=== PATIENT | male | born 1980 | race African-American/Black ===

== ENCOUNTER 2018-05-27 04:25 | Emergency (ER) | payer MEDICAID ==
[~2018-05-27] VITALS: Ht 180.3 cm; Wt 75.0 kg
[2018-05-27] MEDS ORDERED: ONDANSETRON HCL 4MG/2ML INJ IV STA (04:28)
[2018-05-27] MEDS ORDERED: SODIUM CHLORIDE 0.9% 1,000 ML IV ONE (04:28)
[2018-05-27] MEDS ORDERED: MORPHINE SULFATE 4 MG/ML CPJ (NOT FOR IM USE) IV STA (04:28)
[2018-05-27] MEDS ORDERED: TETANUS, DIPHTHERIA, PERTUSSIS VAC/PF 0.5ML (>7YR OLD) IM ONE (04:30)
[2018-05-27] MEDS ORDERED: CEFAZOLIN 1000MG PREMIX 50 ML IV ONE (04:30)
[2018-05-27] MEDS ORDERED: ONDANSETRON HCL 4MG/2ML INJ ONE (04:38)
[2018-05-27] MEDS ORDERED: MORPHINE SULFATE 4 MG/ML CPJ (NOT FOR IM USE) IV ONE ×3 (04:38→06:30)
[2018-05-27 04:55] LABS: BASOPHILS % 0.7 % (0.0-2.0); EOSINOPHILS % 2.3 % (0.0-5.0); HEMATOCRIT. 42.9 % (42.0-52.0); HEMOGLOBIN. 14.2 g/dL (14.0-18.0); LYMPHOCYTES % 52.3 % (20.0-50.0); MEAN CORPUSCULAR HEMOGLOBIN 30.7 pg (28.0-32.0); MEAN PLATELET VOLUME 8.4 fl (7.4-10.4); MONOCYTES % 9.1 % (2.0-8.0); NEUTROPHILS % 35.6 % (40.0-76.0); PLATELET 233 x1000/uL (130-400); RED BLOOD CELL COUNT 4.62 mill/uL (4.7-6.1); RED CELL DISTRIBUTION WIDTH 13.2 % (11.6-14.6)
[2018-05-27 04:59] LABS: CHLORIDE 107 mEq/L (98-107)
[2018-05-27 05:01] LABS: INR 1.1; PARTIAL THROMBOPLASTIN TIME 24.3 sec (23.4-31.0); PROTHROMBIN TIME 10.8 sec (9.1-11.1)
[2018-05-27] MEDS ORDERED: POTASSIUM CHLORIDE 20MEQ TABLET SR PO ONE (05:45)
[2018-05-27] MEDS ORDERED: HYDROCODONE/ACETAMINOPHEN 10/325MG TABLET PO ONE (06:30)
[2018-05-27 07:21] VITALS: BP 128/80
== END 2018-05-27 07:22 | disposition home or self-care (01) ==
LOC: ER 04:32
DX: S91.302A Unspecified open wound, left foot, initial encounter (principal); F17.200 Nicotine dependence, unspecified, uncomplicated; F12.10 Cannabis abuse, uncomplicated; W34.09XA Accidental discharge from other specified firearms, initial encounter; Y93.89 Activity, other specified; Y92.89 Other specified places as the place of occurrence of the external cause; Y99.8 Other external cause status
CPT/HCPCS: 36415; 71045; 72170; 73590; 73610; 73630; 80053; 82962; 83690; 85025; 85610; 85730; 86850; 86900; 86901; 90471; 90715; 96365; 96375; 96376; 99285; J0690; J2270; J2405; J7030

== ENCOUNTER 2018-06-12 13:00 | Inpatient (IN) | payer MEDICAID ==
[~2018-06-12] VITALS: Ht 174 cm; Wt 64.4 kg
[~2018-06-12 13:00] MED LIST: HYDR-4009 PO; SIMV10TA6 PO
[2018-06-12] MEDS ORDERED: LACTATED RINGERS 1,000 ML IV SCH (13:45)
[2018-06-12 14:42] LABS: BASOPHILS % 0.5 % (0.0-2.0); EOSINOPHILS % 3.3 % (0.0-5.0); HEMATOCRIT. 38.4 % (42.0-52.0); HEMOGLOBIN. 12.8 g/dL (14.0-18.0); LYMPHOCYTES % 30.3 % (20.0-50.0); MEAN CORPUSCULAR HEMOGLOBIN 30.4 pg (28.0-32.0); MEAN CORPUSCULAR VOLUME 90.6 fL (80.0-94.0); MEAN PLATELET VOLUME 7.5 fl (7.4-10.4); MONOCYTES % 9.5 % (2.0-8.0); NEUTROPHILS % 56.4 % (40.0-76.0); PLATELET 380 x1000/uL (130-400); RED BLOOD CELL COUNT 4.23 mill/uL (4.7-6.1); RED CELL DISTRIBUTION WIDTH 12.9 % (11.6-14.6)
[2018-06-12 14:46] LABS: CHLORIDE 104 mEq/L (98-107)
[2018-06-12 14:50] LABS: INR 1.1; PARTIAL THROMBOPLASTIN TIME 28.8 sec (23.4-31.0); PROTHROMBIN TIME 10.6 sec (9.1-11.1)
[2018-06-12] MEDS ORDERED: BUPIVACAINE HCL/PF 0.25% (2.5MG/ML) 10ML ONE (15:53)
[2018-06-12] MEDS ORDERED: BACITRACIN 50,000 UNITS/VIAL ONE (15:55)
[2018-06-12 16:11] LABS: CLARITY URINE CLEAR (CLEAR); COLOR URINE YELLOW (YELLOW); KETONES URINE NEGATIVE (NEGATIVE); LEUKOCYTE ESTERASE URINE NEGATIVE (NEGATIVE); NITRITE URINE NEGATIVE (NEGATIVE); OCCULT BLOOD URINE NEGATIVE (NEGATIVE); PROTEIN URINE NEGATIVE (NEGATIVE); SPECIFIC GRAVITY URINE 1.023 (1.005-1.030); UROBILINOGEN URINE 0.2 E.U./dL (0.2-1.0)
[2018-06-12] MEDS ORDERED: GLYCOPYRROLATE 0.2 MG/ML 2ML VIAL ONE (17:08)
[2018-06-12] MEDS ORDERED: MIDAZOLAM HCL 2 MG/2 ML VIAL ONE (17:08)
[2018-06-12] MEDS ORDERED: LIDOCAINE HCL/PF 1% 10 MG/ML 5ML VIAL ONE (17:08)
[2018-06-12] MEDS ORDERED: SUCCINYLCHOLINE CHLORIDE 200MG/10ML IV ONE (17:08)
[2018-06-12] MEDS ORDERED: FENTANYL CITRATE/PF 50MCG/ML 2ML VIAL ONE (17:08)
[2018-06-12] MEDS ORDERED: PROPOFOL 200MG/20ML VIAL IV ONE (17:08)
[2018-06-12] MEDS ORDERED: ONDANSETRON HCL 4MG/2ML INJ ONE (17:19)
[2018-06-12] MEDS ORDERED: METOCLOPRAMIDE HCL 10MG/2ML VIAL ONE (17:19)
[2018-06-12] MEDS ORDERED: MORPHINE SULFATE 4 MG/ML CPJ (NOT FOR IM USE) IV PRN (18:00)
[2018-06-12] MEDS ORDERED: ONDANSETRON HCL 4MG/2ML INJ IV PRN (18:00)
[2018-06-12] MEDS ORDERED: MEPERIDINE HCL/PF 25MG/ML CPJ IV PRN ×2 (18:00)
[2018-06-12] MEDS ORDERED: SODIUM CHLORIDE 0.9% 1,000 ML IV ONE (18:15)
[2018-06-12] MEDS: HYDROMORPHONE HCL/PF 2MG/ML CPJ IV PRN ×3 (18:35→19:04)
[2018-06-12 19:04] VITALS: BP 129/85
== END 2018-06-12 20:00 | disposition home or self-care (01) | DRG 317 ==
LOC: ORIP 13:00
PROVIDERS: ADMIT Orthopaedic Surgery; ATTEND Orthopaedic Surgery
PROC: 2W3MX1Z Immobilization of Left Lower Extremity using Splint (ICD-10-PCS; 2018-06-12)
PROC: 0JDR0ZZ Extraction of Left Foot Subcutaneous Tissue and Fascia, Open Approach (ICD-10-PCS; 2018-06-12)
PROC: 0JCR0ZZ Extirpation of Matter from Left Foot Subcutaneous Tissue and Fascia, Open Approach (ICD-10-PCS; principal; 2018-06-12 17:30)
DX: S92.212B Displaced fracture of cuboid bone of left foot, initial encounter for open fracture (principal); I96 Gangrene, not elsewhere classified; S92.002B Unspecified fracture of left calcaneus, initial encounter for open fracture; S92.192 Other fracture of left talus; S90.32XA Contusion of left foot, initial encounter; Z87.81 Personal history of (healed) traumatic fracture; W34.09XA Accidental discharge from other specified firearms, initial encounter; Y93.89 Activity, other specified; Y92.89 Other specified places as the place of occurrence of the external cause; Y99.8 Other external cause status
CPT/HCPCS: 36415; 73620; 76000; 80048; 87070; 87075; 88300; 93005; J0330; J1170; J2250; J2405; J2704; J2765; J3010; J3490; J7120

== ENCOUNTER 2023-08-20 23:31 | Emergency (ER) | payer MEDICAID ==
[~2023-08-20] VITALS: Ht 175.3 cm; Wt 80.0 kg
[~2023-08-20 23:31] MED LIST changes: -SIMV10TA6 PO; +SIMV10TA97 PO
[2023-08-20 23:54] VITALS: BP 126/81; O2SAT 98
[2023-08-21] MEDS ORDERED: CEFTRIAXONE SODIUM 500 MG/VIAL IM ONE (02:30)
[2023-08-21] MEDS ORDERED: CLIN-116 MT (04:18)
[2023-08-21] MEDS ORDERED: B50 MT (04:18)
[2023-08-21 04:27] VITALS: PULSE 75; RESP 20; TEMP 98.8
== END 2023-08-21 04:34 | disposition home or self-care (01) ==
LOC: ER 23:31
DX: S50.811A Abrasion of right forearm, initial encounter (principal); F12.10 Cannabis abuse, uncomplicated; V49.49XA Driver injured in collision with other motor vehicles in traffic accident, initial encounter; Y93.89 Activity, other specified; Y92.89 Other specified places as the place of occurrence of the external cause; Y99.8 Other external cause status
CPT/HCPCS: 99284; 72040; 73030; 73560; 73620; 96372; J0696